=== PATIENT | male | born 1980 | race Caucasian/White ===

== ENCOUNTER 2019-06-29 12:55 | Emergency (ER) | payer OTHER ==
[~2019-06-29] VITALS: Ht 172.7 cm; Wt 90.7 kg
[2019-06-29] MEDS ORDERED: IV NORMAL SALINE 1,000ML 1,000 ML IV ONE (13:30)
[2019-06-29] MEDS ORDERED: ONDANSETRON PF 4 MG/2 ML VIAL. IVP ONE (13:45)
--- NOTE | 2019-06-29 13:51 | EKG ---
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
[2019-06-29 14:02] LABS: HEMATOCRIT 48.8 % (39.0-53.0); HEMOGLOBIN 16.5 g/dL (13.0-17.5); RED BLOOD COUNT 5.6 x10^6/uL (4.30-5.70); RED CELL DISTRIBUTION WIDTH 13.7 % (11.5-14.5); WHITE BLOOD COUNT 10.4 x10^3/uL (4.0-11.0)
[2019-06-29 14:10] LABS: CALCIUM 9.1 mg/dL (8.5-10.1); CREATININE 1.1 mg/dL (0.7-1.3); GFR 74.5; POTASSIUM 3.9 mmol/L (3.5-5.1)
[2019-06-29 14:25] LABS: MAGNESIUM 2.2 mg/dL (1.8-2.4)
[2019-06-29 14:34] VITALS: BP 121/62
[2019-06-29] MEDS ORDERED: IPRA15SP NS (14:45)
[2019-06-29] MEDS ORDERED: FLUT12AE IH (14:45)
--- NOTE | 2019-06-29 14:48 | PHYS DOC ---
Past History Past Medical History: Asthma, High Cholesterol, Hypertension Past Surgical History: Tonsillectomy Additional Past Surgical Histo: double hernia repair as a child Alcohol Use: None Drug Use: None Adult General Chief Complaint Chief Complaint: NAUSEA/VOMITING/DIARRHEA HPI HPI 4 Patient is a 38 year old M who presents with 3 days of cough or cold and congestion. He also has had one day of nausea vomiting and diarrhea. He states that his symptoms are much worse with activity and improved with rest. He occasionally has shortness of breath associated with activity. He has no other associated symptoms. Has no other exacerbating or relieving factors. Review of Systems Review of Systems Constitutional: Denies fever or chills [] Eyes: Denies change in visual acuity, redness, or eye pain [] HENT: Negative except history of present illness Respiratory: Denies cough or shortness of breath [] Cardiovascular: No additional information not addressed in HPI [] GI: Negative except history of present illness : Denies dysuria or hematuria [] Musculoskeletal: Denies back pain or joint pain [] Integument: Denies rash or skin lesions [] Neurologic: Denies headache, focal weakness or sensory changes [] Endocrine: Denies polyuria or polydipsia [] All other systems were reviewed and found to be within normal limits, except as documented in this note. Family History Family History No pertinent family medical history was reported Current Medications Current Medications Current medications were reviewed Current Medications Medications (Trade) Dose Ordered Sig/Matthew Start Time Stop Time Status Last Admin Dose Admin Ondansetron HCl (Zofran) 4 mg 1X ONCE 06/29/19 13:45 06/29/19 13:46 DC 06/29/19 13:45 4 MG Sodium Chloride 1,000 ml @ 1,000 mls/hr 1X ONCE 06/29/19 13:30 06/29/19 14:29 DC 06/29/19 13:41 1,000 MLS/HR Allergies Allergies Allergies Coded Allergies Type Severity Reaction Last Updated Verified No Known Drug Allergies 06/29/19 No Physical Exam Physical Exam Constitutional: Well developed, well nourished, no acute distress, non-toxic appearance. [] HENT: Normocephalic, atraumatic, mild nasal mucosa erythema with moderate drainage noted Eyes: EOMI, conjunctiva normal, no discharge. [] Neck: Normal range of motion, no tenderness, supple, no stridor. [] Cardiovascular:Heart rate regular rhythm Lungs & Thorax: Bilateral breath sounds clear to auscultation [] Abdomen: Bowel sounds normal, soft, no tenderness, no masses, no pulsatile masses. [] Skin: Warm, dry, no erythema, no rash. [] Extremities: No tenderness, no cyanosis, no clubbing, ROM intact, no edema. [] Neurologic: Alert and oriented X 3, normal motor function, normal sensory function, no focal deficits noted. [] Psychologic: Affect normal, judgement normal, mood normal. [] Current Patient Data Vital Signs Vital Signs Date Time Temp Pulse Resp B/P (MAP) Pulse Ox O2 Delivery O2 Flow Rate FiO2 06/29/19 14:34 64 21 121/62 (81) 99 Room Air 06/29/19 13:09 97.7 Lab Results Laboratory Tests Test 06/29/19 13:35 White Blood Count 10.4 x10^3/uL (4.0-11.0) Red Blood Count 5.60 x10^6/uL (4.30-5.70) Hemoglobin 16.5 g/dL (13.0-17.5) Hematocrit 48.8 % (39.0-53.0) Mean Corpuscular Volume 87 fL (79-100) Mean Corpuscular Hemoglobin 29 pg (25-35) Mean Corpuscular Hemoglobin Concent 34 g/dL (31-37) Red Cell Distribution Width 13.7 % (11.5-14.5) Platelet Count 347 x10^3/uL (140-400) Sodium Level 135 mmol/L (136-145) L Potassium Level 3.9 mmol/L (3.5-5.1) Chloride Level 99 mmol/L (98-107) Carbon Dioxide Level 22 mmol/L (21-32) Anion Gap 14 (6-14) Blood Urea Nitrogen 22 mg/dL (8-26) Creatinine 1.1 mg/dL (0.7-1.3) Estimated GFR (Cockcroft-Gault) 74.5 Glucose Level 92 mg/dL (70-99) Calcium Level 9.1 mg/dL (8.5-10.1) Magnesium Level 2.2 mg/dL (1.8-2.4) Creatine Kinase 434 U/L (39-308) H Creatine Kinase MB (Mass) 3.4 ng/mL (0.0-3.6) Creatine Kinase MB Relative Index 0.8 % (0-4) Troponin I Quantitative < 0.017 ng/mL (0-0.055) EKG EKG Normal sinus rhythm, normal TN interval, normal QRS interval, normal QT, no ST changes Radiology/Procedures Radiology/Procedures [] Course & Med Decision Making Course & Med Decision Making Pertinent Labs and Imaging studies reviewed. (See chart for details) Jas was given Zofran and IV fluids. He was able to tolerate a by mouth fluid challenge thereafter. His symptoms did improve with IV fluids and Zofran. Dragon Disclaimer Dragon Disclaimer This electronic medical record was generated, in whole or in part, using a voice recognition dictation system. Departure Departure: Impression: Primary Impression: Viral upper respiratory infection Additional Impression: Gastritis Disposition: 01 HOME, SELF-CARE Condition: STABLE Referrals: MARTY ZAVALA MD (PCP) Patient Instructions: Viral Syndrome Additional Instructions: Jas was seen in the emergency department for cough, congestion, and vomiting. No emergency medical condition was found on history or physical exam. He did have normal labs and a normal EKG. His symptoms are most consistent with a viral respiratory infection and gastritis, or irritation of the stomach. He was given a prescription for nose spray and an inhaler. He was encouraged to return to the emergency room if he has difficulty holding down fluids or if he develops n ew or worsening symptoms. Is advised follow-up with his primary care doctor as needed for further management. Scripts Ipratropium Babb (IPRATROPIUM BROMIDE) 15 Ml [place] 1 SPRAY NS TID for upper respiratory infection for 7 Days, SPRAY Prov: IVY TURPIN MD 06/29/19 Fluticasone Propionate (FLOVENT 110MCG HFA) 12 Gm Aer.w.adap 2 PUFF IH BID for bronchitis for 7 Days, #1 INHALER 2 Refills Prov: IVY TURPIN MD 06/29/19 Problem Qualifiers Additional Impression: Gastritis Gastritis type: unspecified gastritis Chronicity: acute Gastritis bleeding: without bleeding Qualified Codes: K29.00 - Acute gastritis without bleeding IVY TURPIN MD Jun 29, 2019 14:48
[2019-06-29] MEDS ORDERED: ONDA4TAB7 PO (14:54)
== END 2019-06-29 15:15 | disposition home or self-care (01) ==
LOC: ER 12:55
DX: J06.9 Acute upper respiratory infection, unspecified (principal); B97.89 Other viral agents as the cause of diseases classified elsewhere; K29.70 Gastritis, unspecified, without bleeding; J45.909 Unspecified asthma, uncomplicated; I10 Essential (primary) hypertension; R11.2 Nausea with vomiting, unspecified
CPT/HCPCS: 36415; 80048; 82553; 83735; 84484; 85027; 93005; 96361; 96374; 99285; J2405; J7030